=== PATIENT | male | born 1995 | race African-American/Black ===

== ENCOUNTER 2019-10-07 20:00 | Emergency (ER) | payer BC, OTHER ==
[2019-10-08 15:06] LABS: SARS-CoV-2 MS2 Positive; SARS-CoV-2 N Gene Positive; SARS-CoV-2 S Gene Positive; SARS-CoV-2 orf1ab Positive
--- NOTE | 2019-10-13 11:02 | EKG ---
Test Reason : Blood Pressure : / mmHG Vent. Rate : 056 BPM Atrial Rate : 056 BPM P-R Int : 138 ms QRS Dur : 080 ms QT Int : 426 ms P-R-T Axes : 056 055 014 degrees QTc Int : 411 ms Sinus bradycardia Septal infarct , age undetermined Abnormal ECG Confirmed by GOYO ARGUETA DO ([id number]), editorial writer MARCELLUS ALCANTAR ([id number]) on 10/13/2019 11:01:39 AM Referred By: Confirmed By:GOYO ARGUETA DO
== END 2019-10-07 21:30 | disposition home or self-care (01) ==
LOC: ERS 20:00
DX: U07.1 COVID-19 (principal); F17.290 Nicotine dependence, other tobacco product, uncomplicated
CPT/HCPCS: 87635; 93005; U0003